=== PATIENT | female | born 1975 | race African-American/Black ===

== ENCOUNTER 2017-12-27 13:09 | Emergency (ER) | payer SELFPAY ==
[~2017-12-27] VITALS: Ht 170.2 cm; Wt 99.8 kg
[2017-12-27 13:59] LABS: BASOPHILS # (AUTO) 0.1 /CMM (0.0-0.2); BASOPHILS % (AUTO) 0.7 % (0.0-2.0); EOSINOPHILS % (AUTO) 0.4 % (0.0-6.0); HEMATOCRIT 39 % (33-45); HEMOGLOBIN 12.3 g/dL (11.5-14.8); LYMPHOCYTES # (AUTO) 2.7 /CMM (0.8-4.8); LYMPHOCYTES % (AUTO) 35.1 % (20.0-44.0); MEAN CORPUSCULAR HEMOGLOBIN 26 PG (26.0-33.0); MEAN CORPUSCULAR HGB CONC 31 g/dl (31.0-36.0); MEAN CORPUSCULAR VOLUME 84 fL (82-100); MONOCYTES # (AUTO) 0.3 /CMM (0.1-1.30); NEUTROPHILS # (AUTO) 4.6 /CMM (1.8-8.9); NEUTROPHILS % (AUTO) 59.8 % (43.0-81.0); PLATELET COUNT (AUTO) 230 /CMM (150-450); RED BLOOD CELL COUNT(AUTO) 4.67 MIL/uL (4.0-5.2); WHITE BLOOD COUNT (AUTO) 7.8 K/uL (4.3-11.0)
--- NOTE | 2017-12-27 14:00 | NUR ---
BIB [facility], INTOXICATED & TOOK METH. PLACE ON SUICIDAL PRECAUTION BY CHARLIE KRAMER. PT ASLEEP, EASILY AWAKEN WITH VERBAL STIMULI. VSS. NAD NOTED @ THIS TIME.
[2017-12-27 14:24] LABS: CALCIUM, SERUM 8.7 mg/dL (8.5-10.1); CREATININE 1.1 mg/dL (0.6-1.3); POTASSIUM 3.4 mmol/L (3.5-5.1)
[2017-12-27 14:27] LABS: ALBUMIN 3.8 g/dL (3.4-5.0); BILIRUBIN,DIRECT 0.1 mg/dL (0.0-0.2); BILIRUBIN,TOTAL 0.3 mg/dL (0.2-1.0); TOTAL PROTEIN, SERUM 8.2 g/dL (6.4-8.2)
[2017-12-27 14:28] LABS: SALICYLATE 1.6 mg/dL (2.8-20.0)
--- NOTE | 2017-12-27 14:31 | NUR ---
PT ASLEEP EASILY AWAKEN WITH VERBAL STIMULI. PT AAOX3, CALM & COOPERATIVE & AWARE OF SURROUNDING, ON MONITOR ST & NAD NOTED @ THIS TIME. WILL CONT TO MONITOR.
[2017-12-27 15:02] LABS: APPEARANCE,URINE Clear (CLEAR); BILIRUBIN,URINE Negative (NEGATIVE); BLOOD, URINE Moderate Ery/uL (NEGATIVE); COLOR,URINE Yellow (YELLOW); KETONES,URINE Trace (NEGATIVE); LEUKOCYTE ESTERASE ,URINE Negative (NEGATIVE); NITRITE, URINE Negative (NEGATIVE); PH,URINE 5.5 (5.0-8.0); PROTEIN,URINE 100 mg/dl (NEGATIVE); UGLUCOSE Negative (NEGATIVE); UROBILINOGEN,URINE 0.2 EU/dL (0.2)
[2017-12-27 15:14] LABS: BACTERIA,URINE Rare /HPF (None Seen); SQUAMOUS EPITHELIAL CELL,UR Few /HPF (None Seen); WBC,URINE 0-2 /HPF (0-3)
--- NOTE | 2017-12-27 16:30 | NUR ---
PT AAOX3, DENIES CP, SOB, DIZZINESS, N/V @ THIS TIME. PT SITTING UP, EATING A MEAL, ISMAEL WELL.
[2017-12-27 18:09] VITALS: BP 128/70
--- NOTE | 2017-12-27 18:22 | NUR ---
Patient discharged to home in stable condition. Written and verbal after care instructions given. Patient verbalizes understanding of instruction.
== END 2017-12-27 18:21 | disposition home or self-care (01) ==
LOC: ER 13:12
DX: F10.129 Alcohol abuse with intoxication, unspecified (principal); Y90.7 Blood alcohol level of 200-239 mg/100 ml
CPT/HCPCS: 36415; 80048; 80076; 80305; 80329; 81001; 84703; 85025; 99284; A4606; G0480 ×2; Z7610; 81000-TC